=== PATIENT | male | born 2000 | race African-American/Black ===

== ENCOUNTER → 2020-02-08 | Emergency (ER) | payer SELFPAY ==
--- NOTE | 2020-02-09 00:02 | PHYS DOC ---
Adult General Chief Complaint Chief Complaint: EARACHE/EAR PAIN HPI HPI Patient left prior to being triaged and/or seen by provider EKG EKG [] Radiology/Procedures Radiology/Procedures [] Heart Score Risk Factors: Risk Factors: DM, Current or recent (<one month) smoker, HTN, HLP, family history of CAD, obesity. Risk Scores: Risk Factors: DM, Current or recent (<one month) smoker, HTN, HLP, family history of CAD, obesity. Course & Med Decision Making Course & Med Decision Making Patient left prior to being fully triaged and/or seen by provider Harriet Disclaimer Harriet Disclaimer This electronic medical record was generated, in whole or in part, using a voice recognition dictation system. Departure Departure: Disposition: 07 AMA/HERB/LWKATHY Referrals: DIDI SPEARS MD (PCP) ANTOINETTE PLUMMER DO Feb 09, 2020 00:02
== END ==
LOC: ER 23:09
DX: H92.02 Otalgia, left ear (principal)
CPT/HCPCS: 99281

== ENCOUNTER 2020-06-12 12:05 | Emergency (ER) | payer SELFPAY ==
[~2020-06-12] VITALS: Ht 188 cm; Wt 113.8 kg
[2020-06-12 12:45] LABS: BASO # 0.1 x10^3/uL (0.0-0.2); BASO % 1 % (0-3); EOS # 0.2 x10^3/uL (0.0-0.7); EOS % 3 % (0-3); HEMATOCRIT 40.1 % (39.0-53.0); HEMOGLOBIN 13.1 g/dL (13.0-17.5); LYMPH # 1.5 x10^3/uL (1.0-4.8); LYMPH % 22 % (24-48); MEAN CORPUSCULAR HEMOGLOBIN 30 pg (25-35); MEAN CORPUSCULAR HGB CONC 33 g/dL (31-37); MEAN CORPUSCULAR VOLUME 91 fL (79-100); MONO # 0.5 x10^3/uL (0.0-1.1); MONO % 7 % (0-9); NEUT # 4.4 x10^3uL (1.8-7.7); NEUT % 67 % (31-73); PLATELET COUNT 338 x10^3/uL (140-400); RED BLOOD COUNT 4.41 x10^6/uL (4.30-5.70); RED CELL DISTRIBUTION WIDTH 13.1 % (11.5-14.5); WHITE BLOOD COUNT 6.6 x10^3/uL (4.0-11.0)
[2020-06-12] MEDS ORDERED: ALBUTEROL SULFATE 2.5 MG/3 ML NEBU. NEB ONE (12:45)
--- NOTE | 2020-06-12 12:50 | RAD ---
XR CHEST 2V History: Chest pain Comparison: 07/06/2018 Technique: PA and lateral chest radiographs. Findings: The lungs are adequately and symmectrically inflated. No airspace consolidation, pleural effusion or pneumothorax. The cardiomediastinal silhoutte and pulmonary vasculature are within normal limits. Sof t tissues and osseous structures are unremarkable. Impression: 1. No acute cardiopulmonary process. Electronically signed by: Urbano Souza MD (06/12/2020 12:47 PM) [facility]
--- NOTE | 2020-06-12 13:01 | PHYS DOC ---
Past History Past Medical History: Asthma Past Surgical History: No Surgical History Smoking: Cigarettes Alcohol Use: Rarely Adult General Chief Complaint Chief Complaint: CHEST PAIN HPI HPI Patient is a 19-year-old male who presents to the emergency department complaining of chest pain with asthma that started yesterday at approximately 10:00 in the morning. Patient denies any injury to his chest or lifting any heavy objects lately. Patient states that he ran out of his MDI inhaler. Patient reports his last asthma attack was proximately 6 months ago. Patient states he has a cough, vomited once with a hard cough today. Noticed clear fluid in his vomitus. Denies nausea, abdominal pain, constipation or diarrhea. Patient states he has no chest pain at rest, however notices a chest pain he rates a 7/10 on a 1-10 pain scale when he takes a deep breath, or moves his upper extremities or presses on the center of his chest. Patient states this pain does not radiate. Complains of shortness of breath that is typical for his asthma attacks. Patient states that this exacerbation is typical for his asthma onset. Patient also complains of a sore throat. Patient denies nasal congestion or chest congestion. Patient denies chest palpitations. Patient denies seeing rashes of his skin. Patient states he had a recent exposure to the COVID-19 virus, has not been vaccinated for the COVID-19 virus, does not wish to be checked today for the COVID-19 virus. Patient denies fever or chills at home. Patient is a cigarette smoker, denies EtOH or illicit drug use. Review of Systems Review of Systems 14 body systems of review of systems have been reviewed. See HPI for pertinent positives and negative responses, otherwise all other systems are negative, nonpertinent or noncontributory. Current Medications Current Medications Current Medications Medications (Trade) Dose Ordered Sig/Bob Start Time Stop Time Status Last Admin Dose Admin Albuterol Sulfate (Ventolin) 2.5 mg 1X ONCE 06/12/20 12:45 06/12/20 12:46 DC 06/12/20 12:45 2.5 MG Allergies Allergies Allergies Coded Allergies Type Severity Reaction Last Updated Verified No Known Drug Allergies 06/12/20 No Physical Exam Physical Exam Constitutional: Well developed, well nourished, no acute distress, non-toxic appearance. 19-year-old male in no apparent distress, in no respiratory distress. HENT: Normocephalic, atraumatic, bilateral external ears normal, oropharynx moist, no oral exudates, nose normal. Oropharynx moist, bilateral tonsillar erythema, mild uvular edema, no postnasal drip, no cobblestoning appreciated. No peritonsillar abscess appreciated. No laryngeal edema appreciated. Patient speaking in normal voice tones. No drooling, no trismus appreciated. Eyes: PERRLA, EOMI, conjunctiva normal, no discharge. Neck: Normal range of motion, no tenderness, supple, no stridor. No nuchal rigidity, no midline spine tenderness, no meningismus signs appreciated. Cardiovascular:Heart rate regular rhythm, no murmur, heart sounds S1-S2. Lungs & Thorax: Bilateral breath sounds clear to auscultation all mccoy, pain elicited to palpation sternal chest, pain elicited with deep inspiration expiration, pain elicited with movement of bilateral upper extremities, no crepitus appreciated, no subcu air appreciated, no areas of ecchymosis to the chest appreciated. No audible expiratory or inspiratory wheezing. Abdomen: Bowel sounds normal, soft, no tenderness, no masses, no pulsatile masses. Skin: Warm, dry, no erythema, no rash. Back: No tenderness, no CVA tenderness. Extremities: No tenderness, no cyanosis, no clubbing, ROM intact, no edema. Distal cap refill less than 2 seconds. +2/4 pulses. No extremity swelling appreciated. Neurologic: Alert and oriented X 3, normal motor function, normal sensory function, no focal deficits noted. Psychologic: Affect normal, judgement normal, mood normal. Current Patient Data Vital Signs Vital Signs Date Time Temp Pulse Resp B/P (MAP) Pulse Ox O2 Delivery O2 Flow Rate FiO2 06/12/20 12:13 97.8 65 16 165/82 (109) 98 Room Air Lab Results Laboratory Tests Test 06/12/20 12:25 White Blood Count 6.6 x10^3/uL (4.0-11.0) Red Blood Count 4.41 x10^6/uL (4.30-5.70) Hemoglobin 13.1 g/dL (13.0-17.5) Hematocrit 40.1 % (39.0-53.0) Mean Corpuscular Volume 91 fL (79-100) Mean Corpuscular Hemoglobin 30 pg (25-35) Mean Corpuscular Hemoglobin Concent 33 g/dL (31-37) Red Cell Distribution Width 13.1 % (11.5-14.5) Platelet Count 338 x10^3/uL (140-400) Neutrophils (%) (Auto) 67 % (31-73) Lymphocytes (%) (Auto) 22 % (24-48) L Monocytes (%) (Auto) 7 % (0-9) Eosinophils (%) (Auto) 3 % (0-3) Basophils (%) (Auto) 1 % (0-3) Neutrophils # (Auto) 4.4 x10^3uL (1.8-7.7) Lymphocytes # (Auto) 1.5 x10^3/uL (1.0-4.8) Monocytes # (Auto) 0.5 x10^3/uL (0.0-1.1) Eosinophils # (Auto) 0.2 x10^3/uL (0.0-0.7) Basophils # (Auto) 0.1 x10^3/uL (0.0-0.2) EKG EKG EKG performed at 1214 by house respiratory therapy staff, heart rate 72 bpm normal sinus rhythm without ectopy, [place] interval 0.140, QTc interval 0.396, no acute STEMI, no ACS, no acute ischemia appreciated, EKG interpreted by ED attending physician Dr. Gore. Radiology/Procedures Radiology/Procedures PATIENT: JUANA MEYERS ACCOUNT: [id number] : 2000 LOCATION: ER AGE: 19 SEX: M EXAM STATUS: REG ER ORD. PHYSICIAN: MILLI LIND APRN REASON: CHEST PAIN PROCEDURE: CHEST PA & LATERAL XR CHEST 2V History: Chest pain Comparison: 07/06/2018 Technique: PA and lateral chest radiographs. Findings: The lungs are adequately and symmectrically inflated. No airspace consolidation, pleural effusion or pneumothorax. The cardiomediastinal silhoutte and pulmonary vasculature are within normal limits. Soft tissues and osseous structures are unremarkable. Impression: 1. No acute cardiopulmonary process. Electronically signed by: Urbano Cabrera MD (06/12/2020 12:47 PM) [facility] DICTATED AND SIGNED BY: URBANO CABRERA MD DATE: 06/12/20 1246 CC: MILLI LIND APRN; PCP,NO ~MTH0 0 Heart Score C/O Chest Pain: Yes HEART Score for Chest Pain: HEART Score for Chest Pain Response (Comments) Value History Slighlty/Non-Suspicious 0 ECG Normal 0 Age < 45 0 Risk Factors 1 or 2 Risk Factors 1 Troponin < Normal Limit 0 Total 1 Risk Factors: Risk Factors: DM, Current or recent (<one month) smoker, HTN, HLP, family history of CAD, obesity. Risk Scores: Risk Factors: DM, Current or recent (<one month) smoker, HTN, HLP, family history of CAD, obesity. Course & Med Decision Making Course & Med Decision Making Pertinent Labs and Imaging studies reviewed. (See chart for details) 19-year-old male, vital signs reviewed, presents to the emergency department concerning for chest pain, is also requesting a refill for his albuterol MDI HFA. Physical examination consistent with chest wall pain. Will order ED work- up for cardiorespiratory process, Toradol for pain, albuterol breathing treatment. X-ray negative for acute cardiorespiratory process, EKG negative, patients HEART score equals 1, reevaluation of the patient, patient states that he is "virtually pain-free", reassessment of lung sounds no changes, patient continues to be in no respiratory distress, no adventitious lung sounds appreciated. Discussed with patient smoking cessation, will discharge to home, will order albuterol HFA MDI. Patient gave verbal understanding of discharge home instructions, acknowledges that he needs to quit smoking, follow-up with primary care this week for ongoing chest wall pain symptoms, return to ER precautions and concerns, patient had no further questions or concerns and was discharged home without incident. Dragon Disclaimer Dragon Disclaimer This electronic medical record was generated, in whole or in part, using a voice recognition dictation system. Departure Departure: Impression: Primary Impression: Chest wall pain Additional Impressions: Encounter for medication refill Cigarette smoker Disposition: 01 DC HOME SELF CARE/HOMELESS Condition: GOOD Referrals: PCP,NO (PCP) Patient Instructions: Chest Wall Pain, Smoking Cessation Additional Instructions: You were seen today in the emergency department for chest pain, your EKG, x-ray, and blood lab work did not show any concerning signs for cardiac or respiratory problems there require hospital admission, medications, or follow-up with us specialty physicians. As we discussed, I believe this is chest wall pain. You may use Tylenol or Motrin for the pain. I have refilled your prescription for albuterol MDI. Please follow-up with your primary care physician this week for ongoing problems, return to the emergency department for worsening symptoms or other concerns. EMERGENCY DEPARTMENT GENERAL DISCHARGE INSTRUCTIONS Thank you for coming to [facility] (ED) today and trusting us with you care. We trust that you had a positivie experience in our Emergency Department. If you wish to speak to the department management, you may call the director at [phone]. YOUR FOLLOW UP INSTRUCTIONS ARE FOLLOWS: 1. Do you have a private Doctor? If you do not have a private doctor, please ask for a resource list of physicians or clinics that may be able to assist you with follow up care. 2. The Emergency Physician has interpreted your x-rays. The X-Ray specialist will also review them. If there is a change in the findings, you will be notified in 48 hours when at all possible. 3. A lab test or culture has been done, your results will be reviewed and you will be notified if you need a change in treatment. ADDITIONAL INSTRUCTIONS AND INFORMATION: 1. Your care today has been supervised by a physician who is specially trained in emergency care. Many problems require more than one evaluation for a complete diagnosis and treatment. We recommend that you schedule your follow up appointment as recommended to ensure complete treatment of you illness or injury. If you are unable to obtain follow up care and continue to have a problem, or if your condition worsens, we recommend that you return to the ED. 2. We are not able to safely determine your condition over the phone nor are we able to give sound medical advice over the phone. For these safety reasons, if you call for medical advice we will ask you to come to the ED for further evaluation. 3. If you have any questions regarding these discharge instructions please call the ED at [phone]. SAFETY INFORMATION: In the interest of safety, wellness, and injury prevention; we encourage you to wear your sealbelt, if you smoke; quite smoking, and we encourage family to use a protective helmet for bicycling and other sporting events that present an increased risk for head injury. IF YOUR SYMPTOMS WORSEN OR NEW SYMPTOMS DEVELOP, OR YOU HAVE CONCERNS ABOUT YOUR CONDITION; OR IF YOUR CONDITION WORSENS WHILE YOU ARE WAITING FOR YOUR FOLLOW UP APPOINTMENT; EITHER CONTACT YOUR PRIMARY CARE DOCTOR, THE PHYSICIAN WHOSE NAME AND NUMBER YOU WERE GIVEN, OR RETURN TO THE ED IMMEDIATELY. Scripts Albuterol Sulfate (PROAIR HFA INHALER) 8.5 Gm Hfa.aer.ad 2 PUFF IH PRN Q4-6HRS PRN for wheezing for 21 Days, #1 INHALER 0 Refills Prov: MILLI LIND APRN 06/12/20 Problem Qualifiers MILLI LIND APRN Jun 12, 2020 13:01
[2020-06-12 13:03] LABS: CALCIUM 9.9 mg/dL (8.5-10.1); CREATININE 1.1 mg/dL (0.7-1.3); GFR 103.3; POTASSIUM 4.8 mmol/L (3.5-5.1)
--- NOTE | 2020-06-12 13:10 | EKG ---
[address] [address] Test Date: 2020-06-12 Test Time: 12:14:22 Pat Name: JUANA MEYERS Department: Room: Gender: M Marble Supervisor: : 2000 Requested By: MILLI LIND Order Number: [id number] Reading MD: Measurements Intervals [place] Rate: 72 P: 40 NH: 140 QRS: 46 QRSD: 104 T: 23 QT: 360 QTc: 396 Interpretive Statements SINUS RHYTHM OTHERWISE NORMAL ECG RI6.02 No previous ECG available for comparison
[2020-06-12 13:19] LABS: ALBUMIN 4.2 g/dL (3.4-5.0); DIRECT BILIRUBIN 0.3 mg/dL (0.0-0.2); TOTAL BILIRUBIN 1.3 mg/dL (0.2-1.0); TOTAL PROTEIN 8.1 g/dL (6.4-8.2)
[2020-06-12] MEDS ORDERED: KETOROLAC 30 MG/ML VIAL. IVP ONE (13:30)
[2020-06-12 13:35] VITALS: BP 151/78
[2020-06-12] MEDS ORDERED: ALBU2.5V8 IH (14:15)
== END 2020-06-12 14:17 | disposition home or self-care (01) ==
LOC: ER 12:05
DX: R07.89 Other chest pain (principal); R11.2 Nausea with vomiting, unspecified; R06.02 Shortness of breath; F17.210 Nicotine dependence, cigarettes, uncomplicated; J45.909 Unspecified asthma, uncomplicated
CPT/HCPCS: 36415; 71046; 80048; 80076; 82553; 84484; 85025; 85379; 87070; 87880; 93005; 94640; 96374; 99285; J1885; J7613; 87147